=== PATIENT | male | born 1990 | race Caucasian/White ===

== ENCOUNTER 2017-09-07 11:32 | Emergency (ER) | payer SELFPAY ==
[2017-09-07 11:46] VITALS: RESP 20; O2SAT 100
[2017-09-07] MEDS ORDERED: Sodium Chloride 0.9% 1,000 ML IV STA (12:11)
--- NOTE | 2017-09-07 12:12 | C.PDOC ---
History Of Present Illness 26 years old male presents to ED with complaints of cough with clear sputum that began 6 days ago. Associated with subjective fever. Patient reports experiencing lower back pain, chest pain the day after cough began. Denies recent travel, sick contacts, allergies to medications, drug use, leg swelling, previous DVT/PE, diarrhea, hemoptysis, steroid use, Hx of asthma or smoking, urinary incontinence or retention, bowel incontinence, leg numbness or motor weakness. Patient also reports taking advil for symptoms. Describes chest pain as midsternal, sharp, worse with cough or palpation. He describes the lower back pain as mid lower back, mostly when laying down or as he is getting up. Time Seen by Provider: 09/07/17 12:01 Chief Complaint (Nursing): Cough, Cold, Congestion History Per: Patient History/Exam Limitations: no limitations Onset/Duration Of Symptoms: Days (6) Current Symptoms Are (Timing): Still Present Recent travel outside of the [place]: No Past Medical History Reviewed: Historical Data, Nursing Documentation, Vital Signs Vital Signs: Last Vital Signs Temp 98 F 09/07/17 11:44 Pulse 130 H 09/07/17 11:44 Resp 20 09/07/17 11:44 BP 109/79 09/07/17 11:44 Pulse Ox 100 09/07/17 12:54 - Medical History PMH: No Chronic Diseases Surgical History: No Surg Hx Family History: States: No Known Family Hx - Social History Hx Alcohol Use: No Hx Substance Use: No - Immunization History Hx Tetanus Toxoid Vaccination: No Hx Influenza Vaccination: No Hx Pneumococcal Vaccination: No Review Of Systems Except As Marked, All Systems Reviewed And Found Negative. Constitutional: Positive for: Fever. Negative for: Chills Cardiovascular: Positive for: Chest Pain Respiratory: Positive for: Cough, Sputum (clear) Gastrointestinal: Negative for: Diarrhea Genitourinary: Negative for: Frequency Musculoskeletal: Positive for: Back Pain (lower back). Negative for: Other ( Leg swelling) Physical Exam - Physical Exam Additional Physical Exam Comments: Constitutional: Coughing Frequently. No acute distress. Head: Normocephalic. Atraumatic. Eyes: PERRL. ENT: Moist mucous membranes. Neck: Supple. Cardiovascular: Regular rate. Radial pulse 2+ bilaterally. Chest: Reproducible tenderness Respiratory: Clear to auscultation bilaterally. GI: Soft. Nontender. Nondistended. Back: No CVA tenderness. No midline tenderness. Musculoskeletal: No tenderness or swelling of extremities. Skin: No rash. Neurologic: Alert, no focal deficit. Moves all extremities. ED Course And Treatment - Laboratory Results Result Diagrams: 09/07/17 12:39 09/07/17 12:39 O2 Sat by Pulse Oximetry: 100 (RA) Pulse Ox Interpretation: Normal Medical Decision Making Medical Decision Making: Plan: - Administered Toradol, IV fluids and Benzonatate. - Ordered CXR, X-ray of LS Spine and flu AB swab. EKG Results: - Normal sinus rhythm at 87 bpm - LAD - NO St/T-wave Changes CXR no consolidation. Lumbar spine film no fracture or lesions. Patient's coughing much improved and feels well to go home. Discharge home, f/u clinic, instructed to return to ED for worsening pain, fever, dyspnea, numbness , weakness, urinary or bowel changes, or any other problem. Disposition - Disposition Referrals: [facility] [Outside] Disposition: HOME/ ROUTINE Disposition Time: 14:54 Condition: STABLE Prescriptions: Benzonatate [Tessalon Perles] 200 mg PO TID #30 sgl Famotidine [Pepcid] 1 tab PO BID #14 tab Ibuprofen [Motrin] 1 tab PO Q6 #30 tab Instructions: Upper Respiratory Infection (ED) Forms: [facility] (Spanish), Work Excuse - Clinical Impression Clinical Impression: Upper respiratory infection - Scribe Statement The provider has reviewed the documentation as recorded by the Scribyamini Mac All medical record entries made by the Scribe were at my direction and personally dictated by me. I have reviewed the chart and agree that the record accurately reflects my personal performance of the history, physical exam, medical decision making, and the department course for this patient. I have also personally directed, reviewed, and agree with the discharge instructions and disposition.
[2017-09-07] MEDS ORDERED: Sodium Chloride 0.9% 1,000 ML ONE (12:24)
[2017-09-07 12:43] LABS: BASO % 0.3 % (0.0-2.0); EOS % 0.6 % (0.0-4.0); HEMOGLOBIN 14.9 g/dL (12.0-18.0); LYMPH # 1.2 K/uL (1.0-4.3); LYMPH % 48.1 % (20.0-40.0); MEAN CELL VOLUME 81.5 fL (80.0-94.0); MEAN CORPUSCULAR HEMOGLOBIN 27.9 pg (27.0-31.0); MEAN CORPUSCULAR HGB CONC 34.2 g/dL (33.0-37.0); MEAN PLATELET VOLUME 7.5 fL (7.2-11.7); MONO # 0.4 K/uL (0.0-0.8); MONO % 15.8 % (0.0-10.0); NEUT # 0.9 K/uL (1.8-7.0); NEUT % 35.2 % (50.0-75.0); NRBC % 0.2 % (0.0-2.0); RBC 5.34 Mil/uL (4.40-5.90); RED CELL DISTRIBUTION WIDTH 12.3 % (11.5-14.5); WHITE BLOOD COUNT 2.5 K/uL (4.8-10.8)
[2017-09-07 13:11] LABS: ALB/GLOB RATIO 1.1 (1.0-2.1); ALBUMIN 4.3 g/dL (3.5-5.0); ALT/SGPT 27 U/L (21-72); AST/SGOT 27 U/L (17-59); BLOOD UREA NITROGEN 9 mg/dL (9-20); GFR AFRICAN-AMERICAN > 60; GFR NON-AFRICAN AMERICAN > 60
[2017-09-07 14:09] LABS: CK-MB 1.13 ng/mL (0.0-3.38)
--- NOTE | 2017-09-07 14:56 | RAD ---
Chest x-ray two views History: Cough. Comparison: None available. Findings: No focal infiltrate or effusion. Heart size within normal limits. Impression: No focal infiltrate or effusion.
--- NOTE | 2017-09-07 14:56 | RAD ---
Lumbar spine three views History: Back pain. Comparison: None available. Findings: Spinal alignment is maintained. Vertebral body heights are preserved. Impression: Negative acute. If pain persists, consider MRI.
[2017-09-07 15:26] VITALS: BP 99/67; PULSE 86; TEMP 99.1
--- NOTE | 2017-09-09 19:29 | CARD ---
APPROVED REPORT EKG Measurement Heart [id number] [place] [id number] <Conclusion> Normal sinus rhythm Left axis deviation Abnormal ECG
== END 2017-09-07 15:26 | disposition home or self-care (01) ==
LOC: C.ER 11:32
DX: J06.9 Acute upper respiratory infection, unspecified (principal)
CPT/HCPCS: 71046; 72100; 80053; 82550; 82553; 84484; 85025; 87804; 93005; 96361; 96374; 99284; J1885; J7040